=== PATIENT | female | born 1990 | race African-American/Black ===

== ENCOUNTER 2022-07-21 17:49 | Emergency (ER) | payer MEDICAID ==
[2022-07-21] MEDS ORDERED: MAGNES/ALUMIN/SIMET 30ML UCUP ONE (18:50)
[2022-07-21] MEDS ORDERED: LIDOCAINE VISCOUS 2% SOLN 15 ML UDC ONE (18:50)
[2022-07-21 19:16] LABS: Hematocrit 34.8 % (36.0-45.0); Lymphocytes % 20.6 % (15.3-44.8); MCV 97.4 fL (80-100); MPV 7.7 fL (7.6-11.3); RBC Red Blood Cell Count 3.58 M/uL (3.86-4.86)
[2022-07-21 19:37] LABS: Albumin 4.4 g/dL (3.4-5.0); Bilirubin Direct 0.1 mg/dL (0-0.2); Bilirubin Total 0.4 mg/dL (0.2-1.0); Potassium 3.4 mmol/L (3.5-5.1); Protein, Total 8.6 g/dL (6.4-8.2); Troponin High Sensitivity 3.3 pg/mL (<58.9)
--- NOTE | 2022-07-21 19:52 | RAD REPORT ---
EXAM DESCRIPTION: RAD - Chest Single View - 07/21/2022 7:37 pm CLINICAL HISTORY: CHEST PAIN COMPARISON: No comparisons FINDINGS: Lines: None. Lungs: No evidence of edema or pneumonia. Pleural: No significant pleural effusions or pneumothorax. Cardiac: The heart size is within normal limits. Mediastinum: Within normal limits. Bones: No acute fractures. Other: None IMPRESSION: No acute cardiopulmonary disease.
--- NOTE | 2022-07-21 20:11 | ER ---
Nurse's Notes [facility] Name: Jennifer Noe Age: 31 yrs Sex: Female : 1990 Arrival Date: 07/21/2022 Time: 17:54 Bed 5 Private MD: Diagnosis: Gastro-esophageal reflux disease without esophagitis Presentation: 07/21 18:07 Chief complaint: Patient states: Has to take deeper breaths than usual, R sided chest ll1 pressure, and upper back pain for 2 weeks. Coronavirus screen: Vaccine status: Patient reports being unvaccinated. Client denies travel out of the [place] in the last 14 days. At this time, the client does not indicate any symptoms associated with coronavirus-19. Ebola Screen: Patient denies travel to an Ebola-affected area in the 21 days before illness onset. Initial Sepsis Screen: Does the patient meet any 2 criteria? No. Patient's initial sepsis screen is negative. Does the patient have a suspected source of infection? No. Patient's initial sepsis screen is negative. Risk Assessment: Do you want to hurt yourself or someone else? Patient reports no desire to harm self or others. Onset of symptoms was July 07, 2022. 18:07 Method Of Arrival: Ambulatory ll1 18:07 Acuity: CONNOR 3 ll1 Triage Assessment: 18:09 General: Appears in no apparent distress. Behavior is calm, cooperative, appropriate ll1 for age. Pain: Complains of pain in R chest Pain currently is 4 out of 10 on a pain scale. Quality of pain is described as pressure, Pain began Is continuous. Neuro: No deficits noted. Cardiovascular: Reports chest pain. GI: Reports indigestion. Historical: - Allergies: 18:09 No Known Allergies; ll1 - PSHx: 18:09 Adenoid excision; sinus SX; ll1 - Immunization history:: Client reports having NOT received the Covid vaccine. - Social history:: Smoking status: Patient denies any tobacco usage or history of. Screenin:17 Abuse screen: Denies threats or abuse. Denies injuries from another. Nutritional aa9 screening: No deficits noted. Tuberculosis screening: No symptoms or risk factors identified. Fall Risk None identified. Assessment: 20:15 General: Appears in no apparent distress. comfortable, Behavior is cooperative, aa9 appropriate for age, anxious. Pain: Complains of pain in chest Pain does not radiate. Pain Quality of pain is described as pressure, Also complains of "constant burping". Neuro: Level of Consciousness is awake, alert, obeys commands, Oriented to person, place, time, situation. Cardiovascular: Patient's skin is warm and dry. Rhythm is regular. Respiratory: Airway is patent Respiratory effort is even, unlabored. GI: Parent/caregiver reports the patient having indigestion. : No signs and/or symptoms were reported regarding the genitourinary system. 20:27 Reassessment: No changes from previously documented assessment. provided pt education aa9 on diet changes, pt understands discharge instructions, ambulated out ER. Vital Signs: 18:07 BP 137 / 87; Pulse 87; Resp 17; Temp 98.6; Pulse Ox 100% ; Weight 91.17 kg; Height 5 ll1 ft. 6 in. (167.64 cm); Pain 4/10; 20:15 BP 119 / 76; Pulse 71; Resp 19 S; Pulse Ox 100% on R/A; aa9 18:07 Body Mass Index 32.44 (91.17 kg, 167.64 cm) 1 ED Course: 17:54 Patient arrived in ED. rg4 17:55 Yuly Lugo FNP [facility] 17:55 Aaron Ding MD is Attending Physician. [facility] 18:09 Triage completed. 1 18:09 Arm band placed on Patient placed in an exam room, on a stretcher. 1 18:57 Initial lab(s) drawn, by me, sent to lab. Missed attempt(s): 22 gauge in right iw antecubital area. Bleeding controlled, band aid applied, catheter tip intact. 19:39 XRAY Chest (1 view) In Process Unspecified. EDMS 20:17 Patient has correct armband on for positive identification. Placed in gown. Bed in low aa9 position. Call light in reach. Client placed on continuous cardiac and pulse oximetry monitoring. NIBP monitoring applied. 20:17 No provider procedures requiring assistance completed. Patient maintains SpO2 aa9 saturation greater than 95% on room air. 20:27 IV discontinued, intact, bleeding controlled, No redness/swelling at site. Pressure aa9 dressing applied. Administered Medications: 18:55 Drug: GI Cocktail without - (Maalox Suspension 30 ml, Lidocaine Liquid 2 % 15 tw2 ml) Route: PO; 20:17 Follow up: Response: No adverse reaction aa9 Medication: 20:17 VIS not applicable for this client. aa9 Outcome: 20:11 Discharge ordered by . naima 20:26 Discharged to home ambulatory. aa9 20:26 Condition: stable 20:26 Discharge instructions given to patient, Instructed on discharge instructions, follow up and referral plans. medication usage, Demonstrated understanding of instructions, follow-up care, medications, Prescriptions given X 1. 20:28 Patient left the ED. aa9 Signatures: Dispatcher [employer] EDMS Siobhan Hagen, RN RN iw Yvette Workman RN RN tw2 Arlet Smallwood4 Jeanette Mata RN RN ll1 Yuly Lugo FNP DIRECTOR BROADCAST 7 Yuko Bright RN RN aa9
--- NOTE | 2022-07-21 20:11 | EDPHYS ---
Physician Documentation [facility] Name: Jennifer Noe Age: 31 yrs Sex: Female : 1990 Arrival Date: 07/21/2022 Time: 17:54 Bed 5 Private MD: ED Physician Aaron Ding HPI: 07/21 18:10 This 31 yrs old Black Female presents to ER via Ambulatory with complaints of Chest jh7 Pressure. Historical: - Allergies: 18:09 No Known Allergies; ll1 - PSHx: 18:09 Adenoid excision; sinus SX; ll1 - Immunization history:: Client reports having NOT received the Covid vaccine. - Social history:: Smoking status: Patient denies any tobacco usage or history of. ROS: 18:09 Constitutional: Negative for fever, chills, and weight loss, Eyes: Negative for injury, jh7 pain, redness, and discharge, ENT: Negative for injury, pain, and discharge, Neck: Negative for injury, pain, and swelling, Respiratory: Negative for shortness of breath, cough, wheezing, and pleuritic chest pain, Back: Negative for injury and pain, MS/Extremity: Negative for injury and deformity, Skin: Negative for injury, rash, and discoloration, Neuro: Negative for headache, weakness, numbness, tingling, and seizure. 18:09 Cardiovascular: Positive for Chest tightness, Negative for chest pain. 18:09 Abdomen/GI: Positive for Belching, bloating, Negative for abdominal pain, nausea, vomiting, and diarrhea, constipation. 18:09 All other systems are negative. Exam: 18:09 Constitutional: This is a well developed, well nourished patient who is awake, alert, jh7 and in no acute distress. Head/Face: Normocephalic, atraumatic. Eyes: Pupils equal round and reactive to light, extra-ocular motions intact. Lids and lashes normal. Conjunctiva and sclera are non-icteric and not injected. Cornea within normal limits. Periorbital areas with no swelling, redness, or edema. ENT: Nares patent. No nasal discharge, no septal abnormalities noted. Tympanic membranes are normal and external auditory canals are clear. Oropharynx with no redness, swelling, or masses, exudates, or evidence of obstruction, uvula midline. Mucous membranes moist. Cardiovascular: Regular rate and rhythm with a normal S1 and S2. No gallops, murmurs, or rubs. Normal PMI, no JVD. No pulse deficits. Respiratory: Lungs have equal breath sounds bilaterally, clear to auscultation and percussion. No rales, rhonchi or wheezes noted. No increased work of breathing, no retractions or nasal flaring. Abdomen/GI: Soft, non-tender, with normal bowel sounds. No distension or tympany. No guarding or rebound. No evidence of tenderness throughout. Back: No spinal tenderness. No costovertebral tenderness. Full range of motion. Skin: Warm, dry with normal turgor. Normal color with no rashes, no lesions, and no evidence of cellulitis. MS/ Extremity: Pulses equal, no cyanosis. Neurovascular intact. Full, normal range of motion. Neuro: Awake and alert, GCS 15, oriented to person, place, time, and situation. Motor strength 5/5 in all extremities. Sensory grossly intact. Normal gait. 18:09 ECG was reviewed by the Attending Physician. Vital Signs: 18:07 BP 137 / 87; Pulse 87; Resp 17; Temp 98.6; Pulse Ox 100% ; Weight 91.17 kg; Height 5 ll1 ft. 6 in. (167.64 cm); Pain 4/10; 20:15 BP 119 / 76; Pulse 71; Resp 19 S; Pulse Ox 100% on R/A; aa9 18:07 Body Mass Index 32.44 (91.17 kg, 167.64 cm) ll1 MDM: 17:55 Patient medically screened. [facility] 20:20 Differential diagnosis: Pneumonia, GERD, gastritis. Data reviewed: vital signs, nurses [facility] notes, lab test result(s), EKG, radiologic studies, plain films. Data interpreted: Pulse oximetry: is 100 %. Interpretation: normal. Counseling: I had a detailed discussion with the patient and/or guardian regarding: the historical points, exam findings, and any diagnostic results supporting the discharge/admit diagnosis, to return to the emergency department if symptoms worsen or persist or if there are any questions or concerns that arise at home. Medication response: GI Cocktail relieved the patient's pain. The symptoms have resolved. 07/21 18:17 Order name: Basic Metabolic Panel; Complete Time: 20:05 [facility] 07/21 18:17 Order name: CBC with Diff; Complete Time: 19:31 [facility] 07/21 18:17 Order name: D-Dimer; Complete Time: 19:31 [facility] 07/21 18:17 Order name: LFT's; Complete Time: 20:05 [facility] 07/21 18:17 Order name: Troponin HS; Complete Time: 20:05 [facility] 07/21 18:17 Order name: XRAY Chest (1 view); Complete Time: 20:05 [facility] 07/21 18:17 Order name: EKG; Complete Time: 18:18 [facility] 07/21 18:17 Order name: Cardiac monitoring; Complete Time: 20:14 [facility] 07/21 18:17 Order name: EKG - Nurse/Tech; Complete Time: 20:14 [facility] 07/21 18:17 Order name: IV Saline Lock; Complete Time: 18:55 [facility] 07/21 18:17 Order name: Labs collected and sent; Complete Time: 18:55 [facility] 07/21 18:17 Order name: O2 Per Protocol; Complete Time: 18:46 [facility] 07/21 18:17 Order name: O2 Sat Monitoring; Complete Time: 18:46 [facility] EC:09 Rate is 78 beats/min. Rhythm is regular. QRS [place] is Normal. CT interval is normal at [facility] 148 msec. QRS interval is normal at 80 msec. QT interval is normal at 386 msec. No Q waves. T waves are Inverted in lead V1. No ST changes noted. Clinical impression: NSR w/ Non-specific ST/T Changes. Administered Medications: 18:55 Drug: GI Cocktail without - (Maalox Suspension 30 ml, Lidocaine Liquid 2 % 15 tw2 ml) Route: PO; 20:17 Follow up: Response: No adverse reaction aa9 Disposition Summary: 07/21/22 20:11 Discharge Ordered Location: Home [facility] Problem: new [facility] Symptoms: have improved [facility] Condition: Stable [facility] Diagnosis - Gastro-esophageal reflux disease without esophagitis [facility] Followup: [facility] - With: Private Physician - When: 2 - 3 days - Reason: Recheck today's complaints Discharge Instructions: - Discharge Summary Sheet [facility] - Gastroesophageal Reflux Disease, Adult [facility] Forms: - Medication Reconciliation Form [facility] - Thank You Letter [facility] Prescriptions: - Nexium 20 mg Oral Capsule - take 1 capsule by ORAL route once daily; 20 capsule; Refills: 0, Product jh7 Selection Permitted Addendum: 07/24/2022 20:19 Co-signature as Attending Physician, Aaron Ding MD I agree with the assessment and r t plan of care. Signatures: Dispatcher [employer] Yvette Aguirre RN RN tw2 Jeanette Mata RN RN ll1 Yuly Lugo, HEALTH PROGRAM ANALYST HEALTH PROGRAM ANALYST jh7 Aaron Ding MD MD rt Yuko Bright RN aa9
[2022-07-21 20:42] VITALS: TEMP 98.6; O2SAT 100
[2022-07-21 20:43] VITALS: BP 119/76
--- NOTE | 2022-07-23 16:33 | EKG ---
Test Date: 2022-07-21 Test Time: 20:08:00 Mining Captain: AISHA MEASUREMENT RESULTS: Intervals: Rate: 86 [place]: 148 QRSD: 76 QT: 372 QTc: 445 [place]: P: 60 NJ: 148 QRS: 60 T: 35 INTERPRETIVE STATEMENTS: Normal sinus rhythm Septal infarct, age undetermined Abnormal ECG No previous ECG available for comparison Electronically Signed On 07-23-22 16:32:50 EXPRESS MANAGER by Javier Coffey
--- NOTE | 2022-07-26 12:59 | EKG ---
Test Date: 2022-07-21 Test Time: 20:08:32 Container Maker: AISHA MEASUREMENT RESULTS: Intervals: Rate: 78 PA: 148 QRSD: 80 QT: 386 QTc: 440 [place]: P: 60 PA: 148 QRS: 56 T: 37 INTERPRETIVE STATEMENTS: Normal sinus rhythm Septal infarct, age undetermined Abnormal ECG Compared to ECG 07/21/2022 20:08:00 No significant changes Electronically Signed On 07-26-22 12:53:28 SALES HOST by Javier Coffey
== END 2022-07-21 20:28 | disposition home or self-care (01) ==
LOC: ER 17:49
DX: K21.9 Gastro-esophageal reflux disease without esophagitis (principal)
CPT/HCPCS: 36415; 71045; 80048; 80076; 84484; 85025; 85379; 93005; 99284